=== PATIENT | male | born 1985 | race Caucasian/White ===

== ENCOUNTER 2017-01-03 16:00 | Inpatient (IN) | payer OTHER ==
--- NOTE | ~2017-01-03 | DS ---
Unit #: [id number] #: [id number] Patient: CHRISTAL DAWSON [id number] [facility] [address] [place] [address] [id number] MR#: [id number] NAME: CHRISTAL DAWSON ROOM: P202 Age: 31 Sex: M Admission Date: 01/03/2017 : 1985 Discharge Date: 01/05/2017 Attending Physician: Aurelio Bello M.D. Primary Care Physician: Primary Care Physician No DISCHARGE SUMMARY REASON FOR ADMISSION The patient is a 31-year-old white male, admitted with a recent relapse of opioid abuse. HOSPITAL COURSE The patient was admitted to the [address] [place] [address] unit and placed on routine detoxification protocol for opioids. He was continued on previously prescribed medications including Lexapro, Depakote, Seroquel XR, and Levaquin which he is taking for wound infection. The patient's stay in the hospital was a brief and uneventful one. His detox went smoothly. Seroquel was increased to 150 mg of the XR formulation given the patient's complaints of increased poor sleep and paranoia. By 01/05/2017, arrangements have been made for the patient to return to "[facility]" to complete his course of treatment there and discharge was ordered. FINAL DIAGNOSES Opioid use disorder; bipolar disorder, unspecified; injection site abscess. FOLLOWUP The patient will follow up through the auspices of [facility]. PROGNOSIS His prognosis is considered fair. Dictated by... Aurelio Bello M.D. CB/edelmira TD: 01/06/2017 02:59 JOB #: [id number] DISCHARGE SUMMARY Page 1 of 1 X Aurelio Bello MD X DISCHARGE SUMMARY
--- NOTE | ~2017-01-03 | CO ---
Unit #: [id number] #: [id number] Patient: CHRISTAL DAWSON [id number] [place] [address] [id number] I MR#: [id number] NAME: CHRISTAL DAWSON ROOM: P202 Age: 31 Sex: M Admission Date: 01/03/2017 : 1985 Attending Physician: Aurelio Bello M.D. Primary Care Physician: Primary Care Physician No Requesting Physician: Aurelio Bello M.D. Consultation Date: 01/04/2017 CONSULTATION REPORT SUBJECTIVE "I have a heroin habit and my right forearm is the vein I use most and I developed an abscess." I ended up in the hospital and they gave me IV antibiotics and then discharged me here, and I'm taking Levaquin by mouth because I am allergic to everything else." OBJECTIVE VITAL SIGNS: Within normal limits. Noted surgical wound to right forearm approximately 3 cm x 2 cm x 1 cm deep. Area is clean, dry and no redness, no drainage, no odor. ASSESSMENT Healing abscess to right forearm. PLAN Continue current plan of treatment including twice daily dressing changes. Dictated by... Félix Ruiz/lizz TD: 01/05/2017 08:55 JOB #: [id number] CONSULTATION REPORT Page 1 of 1 X Alejandra Ely APR X CONSULTATION REPORT
--- NOTE | ~2017-01-03 | HP ---
Unit #: [id number] #: [id number] Patient: CHRISTAL DAWSON [id number] [place] [address] [id number] I MR#: [id number] NAME: CHRISTAL DAWSON ROOM: P202 Age: 31 Sex: M Admission Date: 01/03/2017 : 1985 Attending Physician: Aurelio Bello M.D. Admitting Physician: Aurelio Bello M.D. Primary Care Physician: Primary Care Physician No HISTORY AND PHYSICAL HISTORY OF PRESENT ILLNESS The patient is a 31-year-old male, who states that he is here for depression and suicidal ideation, and heroin abuse. PAST MEDICAL HISTORY Significant for seizures. PAST SURGICAL HISTORY Significant for right arm, left knee, and right femur surgery of some sort. ALLERGIES Sulfa, penicillin, and Rocephin. SOCIAL HISTORY Positive for smoking, alcohol, and drugs. FAMILY HISTORY Noncontributory. REVIEW OF SYSTEMS CONSTITUTIONAL: No fever or chills. HEENT: Denies any sore throat, ear pain or runny nose. CARDIOVASCULAR: Denies chest pain, irregular heart rhythm or palpitations. CHEST: Denies shortness of breath or cough. No hemoptysis. GASTROINTESTINAL: Denies nausea, vomiting, diarrhea or chronic constipation. ENDOCRINE: Denies history of increased thirst or urination. No recent significant weight loss or gain. GENITOURINARY: Denies dysuria, frequency, or hematuria. SKIN: Denies any rashes. HEMATOLOGIC: Denies history of increased bleeding or bruising. MUSCULOSKELETAL: Denies any hot, swollen joints. No generalized muscle pain. NEUROLOGIC: Denies problems with vision or speech. No frequent, severe headaches. No numbness, tingling or weakness in any extremities. Denies loss of bladder or bowel control. CURRENT MEDICATIONS 1. Neurontin 400 mg p.o. four times daily 2. Lexapro 10 mg p.o. daily 3. Depakote 250 mg p.o. twice daily 4. Seroquel ER 50 mg p.o. q.h.s. 5. Currently Levaquin 750 mg one p.o. daily times two more doses Unit #: [id number] #: [id number] Patient: CHRISTAL DAWSON PHYSICAL EXAMINATION GENERAL: Alert, oriented, and in no acute distress. VITAL SIGNS: Temperature 98.7, heart rate 79, respirations 16, and blood pressure 104/67. HEIGHT: 5 feet 11 inches. WEIGHT: 196 pounds. SKIN: Warm and dry without rash or lesion. Abscess to right forearm, surgical wound noted approximately 3 cm in length x 2 cm wide x 1 cm deep, no redness, swelling, or drainage, or foul odor. Scar to the left thigh, scar to the left foot, and scar to the right knee. HEENT: Normocephalic. TMs not viewed. Oral and nasal passages clear. Conjunctivae clear. PERRLA. EOMs intact. NECK: Supple without lymphadenopathy or thyromegaly. HEART: Regular rate and rhythm without murmur. LUNGS: Clear. ABDOMEN: Soft, nontender. : Not done. EXTREMITIES: No evidence of cyanosis, clubbing or edema. Moves all without focal deficit. NEUROLOGICAL: Grossly within normal limits. Cranial Nerves: II: Visual luna are intact. III, IV AND : Extraocular movements are intact. Pupils are equal, round and reactive to light. V: Facial sensation is grossly normal. VII: Facial movements and expression are normal. VIII: Auditory acuity grossly intact. IX, X: Uvula is midline. Phonation is normal. XI: Patient shrugs shoulders and turns head normally. XII: Tongue protrudes in the midline. Sensory and Motor Function: Sensory and motor sensation is grossly normal. Motor: moves all extremities well. Coordination: Gait is normal. Deep Tendon Reflexes: Intact. IMPRESSION Psychiatric admission. RECOMMENDATIONS Psychiatric, per psychiatrist. MEDICAL I see no contraindications to participating in facility's activities. MEDICAL PROGNOSIS Good. Dictated by... Félix Ruiz/lizz TD: 01/05/2017 08:58 JOB #: [id number] Unit #: [id number] #: [id number] Patient: CHRISTAL DAWSON HISTORY AND PHYSICAL Page 1 of 1 X Alejandra Ely APR X HISTORY AND PHYSICAL
--- NOTE | ~2017-01-03 | PA ---
Unit #: [id number] #: [id number] Patient: CHRISTAL DAWSON [id number] [place] [address] [id number] I MR#: [id number] NAME: CHRISTAL DAWSON ROOM: P202 Age: 31 Sex: M Admission Date: 01/03/2017 : 1985 Date of Assessment: 01/04/2017 Attending Physician: Aurelio Bello M.D. Admitting Physician: Aurelio Bello M.D. Primary Care Physician: Primary Care Physician No PSYCHIATRIC ASSESSMENT IDENTIFING INFORMATION The patient is a 31-year-old white male, admitted with increasing abuse of heroin, suicidal ideation, and auditory hallucinations. INFORMANT(S) Patient, patient reliability is fair. CHIEF COMPLAINT None given. HISTORY OF PRESENT ILLNESS The patient is a 31-year-old white male, admitted to the [address] [place] [address] after presenting to this facility reporting increasing abuse of heroin. He was also reporting auditory hallucinations of a command type telling him to harm himself. The patient reports that [place] The patient reports that he has been noncompliant with medications and at this time is presently homeless with hopes to live with his mother following discharge. He was last admitted to this facility on 08/21/2016. For a more complete history of present illness please refer to the previously dictated notes. PAST PSYCHIATRIC HISTORY Reviewed and no changes. PAST MEDICAL HISTORY Reviewed and no changes. MEDICATIONS AT THE TIME OF ADMISSION The patient's medications included: 1. Neurontin 2. Lexapro 3. Depakote 4. Seroquel XR 5. Levaquin ALLERGIES None. FAMILY HISTORY Noncontributory. SOCIAL HISTORY The patient is presently homeless but hopes to live with his mother Unit #: [id number] #: [id number] Patient: CHRISTAL DAWSON following discharge. He reports daily use of heroin. He reports no abuse of other psychoactive substances. MENTAL STATUS EXAM At this time reveals the patient to be a well-developed, well-nourished discharged white male, appearing his stated age. He is in no apparent physical distress at the time of the examination. He is awake, alert, and oriented in all spheres. His mood is dysphoric. His affect constricted. Speech is generally relevant and coherent. There are no gross deficits to memory or cognition noted. Intelligence is judged to be in the average range based on fund of knowledge. The patient is cooperative throughout the interview. He is currently endorsing positive suicidal ideation and denies homicidal ideation. He denies any psychotic symptoms. His judgment and insight appear to be reasonably intact. ASSETS To be assessed. LIABILITIES Lack of resources. ADMITTING DIAGNOSES [place] I: Opioid use disorder. Schizoaffective disorder. Injection site abscess. TREATMENT PLAN The patient remains hospitalized for safety and stabilization. We will discontinue Neurontin but continue previously prescribed medications including Depakote, Lexapro, and Seroquel, and Levaquin. I will increase the patient's Seroquel dose to 150 mg at h.s. to address psychotic symptoms. Routine detoxification protocol for opioids has been initiated and suicide precautions are in place. ESTIMATED LENGTH OF STAY IN THE HOSPITAL Bkrn-fn-homce days. Dictated by... Aurelio Bello M.D. CARISSA/lizz TD: 01/05/2017 07:59 JOB #: [id number] Unit #: [id number] #: [id number] Patient: CHRISTAL DAWSON PSYCHIATRIC ASSESSMENT Page 1 of 1 X Aurelio Bello MD X PSYCHIATRIC ASSESSMENT
[2017-01-05 10:15] LABS: URINE APPEARANCE CLEAR; URINE BILIRUBIN NEG (NEG); URINE BLOOD NEG (NEG); URINE COLOR YELLOW; URINE GLUCOSE NEG (NEG); URINE KETONE NEG (NEG); URINE LEUKOCYTE ESTERASE NEG (NEG); URINE NITRATE NEG (NEG); URINE PROTEIN NEG (NEG); URINE SPECIFIC GRAVITY 1.009 (1.003-1.035); URINE UROBILINOGEN 0.2 MG/DL (NEG)
[2017-01-05 11:07] LABS: AMPHETAMINE NEG (NEG); BARBITURATES NEG (NEG); BENZODIAZEPINES NEG (NEG); COCAINE NEG (NEG); MARIJUANA NEG (NEG); OPIATES POS (NEG); TRICYCLIC ANTIDEPRESSANTS NEG (NEG); U METHADONE NEG (NEG)
== END 2017-01-05 16:15 | DRG 897 ==
LOC: UNDOADMIN 19:11 → P1E 19:11 → P2S 21:33
PROVIDERS: Specialist
PROC: HZ2ZZZZ Detoxification Services for Substance Abuse Treatment (ICD-10-PCS; principal; 2017-01-04)
DX: F11.10 Opioid abuse, uncomplicated (principal); R45.851 Suicidal ideations; Z88.0 Allergy status to penicillin; Z88.2 Allergy status to sulfonamides; F31.9 Bipolar disorder, unspecified
CPT/HCPCS: 80307; 81003

== ENCOUNTER 2017-01-17 20:00 | Inpatient (IN) | payer OTHER ==
--- NOTE | ~2017-01-17 | PN ---
Unit #: [id number] #: [id number] Patient: CHRISTAL DAWSON [id number] [facility] [address] [place] [address] [id number] I MR#: [id number] NAME: CHRISTAL DAWSON ROOM: P206 Age: 31 Sex: M Admission Date: 01/17/2017 : 1985 Attending Physician: Aurelio Bello M.D. Admitting Physician: Aurelio Bello M.D. Primary Care Physician: Primary Care Physician Nicole MOON PROGRESS NOTES DATE 01/19/2017 DISCUSSION The patient is abed resting comfortably. He offers no new complaints when seen today. His detox continues uneventfully. Dictated by... Aurelio Bello M.D. CB/danica TD: 01/19/2017 10:51 JOB #: [id number] [facility] PROGRESS NOTES Page 1 of 1 X Aurelio Bello MD X PROGRESS NOTE
--- NOTE | ~2017-01-17 | PA ---
Unit #: [id number] #: [id number] Patient: CHRISTAL DAWSON [id number] [facility] [address] [place] [address] [id number] MR#: [id number] NAME: CHRISTAL DAWSON ROOM: P206 Age: 31 Sex: M Admission Date: 01/17/2017 : 1985 Date of Assessment: 01/18/2017 Attending Physician: Aurelio Bello M.D. Admitting Physician: Aurelio Bello M.D. Primary Care Physician: Primary Care Physician No PSYCHIATRIC ASSESSMENT IDENTIFYING INFORMATION The patient is a 31-year-old white male admitted to the [address] [place] [address] unit with complaints of suicidal ideation and heroin abuse. CHIEF COMPLAINT Relapse INFORMANT(S) The patient, reliability is fair. HISTORY OF PRESENT ILLNESS The patient is a 31-year-old white male discharged from this facility on 01/07/2017. He was scheduled to return to "[facility]" but reports that he was not accepted to that facility. The patient since that time has been living "in a hotel and with my mother" though the chart seems to indicate the patient is actually homeless. The patient had reported a plan to step into traffic to commit suicide when admitted but to this physician states that he had hoped to purchase a bottle of power steering fluid ingest it and see what the results would be. The patient when queried as to whether he is abusing any substances the patient answered "only heroin." He continues to endorse positive suicidal ideation when seen today he denies homicidal ideation. For more complete history of present illness please refer to previous dictated notes. PAST PSYCHIATRIC HISTORY Reviewed no changes. PAST MEDICAL HISTORY Reviewed no changes. MEDICATIONS The patient was discharged from this facility on 01/05 on Seroquel XR only. He claims to be on various medications including Neurontin, Lexapro, Depakote, clindamycin, diclofenac, prochlorperazine, Claritin, Seroquel XR and Atarax. ALLERGIES Penicillin and sulfa, brompheniramine, codeine, dextromethorphan, pseudoephedrine. FAMILY HISTORY Reviewed no changes Unit #: [id number] #: [id number] Patient: CHRISTAL DAWSON SOCIAL HISTORY Reviewed no changes MENTAL STATUS EXAMINATION At this time reveals the patient to be a disheveled white male, appearing his stated age. He is in no apparent physical distress at the time of examination. He is awake, alert, and oriented in all spheres. His mood is mildly dysphoric. His affect constricted. Speech is generally relevant and coherent. There are no gross deficits in memory or cognition noted. Intelligence is judged to be in the low average range based on fund of knowledge. The patient is cooperative throughout the interview. He is currently endorsing positive suicidal. He denies homicidal ideation. He denies any psychotic features. His judgment and insight appear to be at baseline. The patient's assets to be assessed. Liabilities homelessness, lack of resources. DIAGNOSTIC IMPRESSION Opioid use disorder, mood disorder unspecified, injection site abscess. TREATMENT PLAN The patient remains hospitalized for safety and stabilization. We will continue previously prescribed Seroquel XR and clindamycin. The patient's Depakote is at dosed at 250 mg twice daily which is clearly not capable of providing any anticonvulsant affect and the patient was on no such medication at the time of his previous admission to this facility. The patient will participate in appropriate ndiaye and milieu activities and will be transferred to the [facility] or [address] [place] [address] unit. It is my suspicion that the patient is here secondary to his current homeless status and need for lodging however his continued claims of suicidal ideation with specific plan i.e. "ingestion of power steering fluid" necessitates ongoing inpatient care. Dictated by... Aurelio Bello M.D. CARISSA/danica TD: 01/19/2017 01:39 JOB #: [id number] PSYCHIATRIC ASSESSMENT Page 1 of 1 X Aurelio Bello MD X PSYCHIATRIC ASSESSMENT
--- NOTE | ~2017-01-17 | DS ---
Unit #: [id number] #: [id number] Patient: CHRISTAL DAWSON [id number] [place] [address] [id number] MR#: [id number] NAME: CHRISTAL DAWSON ROOM: P206 Age: 31 Sex: M Admission Date: 01/17/2017 : 1985 Discharge Date: 01/20/2017 Attending Physician: Aurelio Bello M.D. Primary Care Physician: Primary Care Physician No DISCHARGE SUMMARY REASON FOR ADMISSION The patient is a 31-year-old, single, white male, admitted to the [address] [place] [address] for opioid detox and claiming to have suicidal ideation. HOSPITAL COURSE The patient was admitted to [address] [place] [address] and placed on suicide precautions. He was continued on prescribed Seroquel XR and Cleocin. The patient's detox was uneventful one and his mood brightened considerably. By 01/20/2017, he stated that he was headed to "[facility]" and discharge was ordered. FINAL DIAGNOSES Opioid use disorder; dysthymic disorder; injection site abscess. DISPOSITION ON DISCHARGE The patient is discharged on the following medications: Cleocin 150 mg q.6 hours for injection site abscess, Seroquel XR 150 mg at 7:00 p.m. for mood stabilization. DISCHARGE INSTRUCTIONS No dietary or physical restrictions were placed upon the patient at the time of discharge. FOLLOWUP Followup will take place through the auspices of community mental health resources. PROGNOSIS The patient's prognosis is considered fair. Dictated by... Aurelio Bello M.D. CARISSA/edelmira TD: 01/20/2017 16:57 JOB #: [id number] Unit #: [id number] #: [id number] Patient: CHRISTAL DAWSON DISCHARGE SUMMARY Page 1 of 1 X Aurelio Bello MD X DISCHARGE SUMMARY
--- NOTE | ~2017-01-17 | HP ---
Unit #: [id number] #: [id number] Patient: CHRISTAL DAWSON [id number] [facility] [address] [place] [address] [id number] MR#: [id number] NAME: CHRISTAL DAWSON ROOM: P206 Age: 31 Sex: M Admission Date: 01/17/2017 : 1985 Attending Physician: Aurelio Bello M.D. Admitting Physician: Aurelio Bello M.D. Primary Care Physician: Primary Care Physician No HISTORY AND PHYSICAL The patient is a 31-year-old male admitted to [address] [place] [address] on 01/17/2017 for suicidal ideations and to detox from heroin. The patient had a recent admission on 01/03/2017 where a full history and physical was completed that history and physical has been reviewed. No changes need to be made. Dictated by... Félix Weaver/danica TD: 01/19/2017 04:05 JOB #: [id number] HISTORY AND PHYSICAL Page 1 of 1 X KJ VAZQUEZ APRN X HISTORY AND PHYSICAL
[2017-01-18 12:16] LABS: AMPHETAMINE NEG (NEG); BARBITURATES POS (NEG); BENZODIAZEPINES POS (NEG); COCAINE NEG (NEG); MARIJUANA NEG (NEG); OPIATES POS (NEG); TRICYCLIC ANTIDEPRESSANTS NEG (NEG); U METHADONE NEG (NEG)
== END 2017-01-20 13:30 | disposition home or self-care (01) | DRG 897 ==
LOC: P2S 22:25 → P2L 22:25 → P2S 01-18 14:53
PROVIDERS: Psychiatry & Neurology Psychiatry
PROC: HZ2ZZZZ Detoxification Services for Substance Abuse Treatment (ICD-10-PCS; principal; 2017-01-17)
DX: F11.20 Opioid dependence, uncomplicated (principal); R45.851 Suicidal ideations; L02.91 Cutaneous abscess, unspecified; F39 Unspecified mood [affective] disorder; Z88.2 Allergy status to sulfonamides; Z88.0 Allergy status to penicillin; Z88.5 Allergy status to narcotic agent; Z88.8 Allergy status to other drugs, medicaments and biological substances
CPT/HCPCS: 80164; 80307; 86592

== ENCOUNTER 2017-01-31 11:00 | Inpatient (IN) | payer OTHER ==
--- NOTE | ~2017-01-31 | PA ---
Unit #: [id number] #: [id number] Patient: CHRISTAL DAWSON [id number] [facility] [address] [place] [address] [id number] I MR#: [id number] NAME: CHRISTAL DAWSON ROOM: P178 Age: 31 Sex: M Admission Date: 01/31/2017 : 1985 Date of Assessment: 02/01/2017 Attending Physician: Aurelio Belol M.D. Admitting Physician: Aurelio Bello M.D. Primary Care Physician: Duncan Virgen M.D. PSYCHIATRIC ASSESSMENT IDENTIFYING INFORMATION The patient is a 31-year-old white male, last discharged from this facility on 01/20/2017. He returns stating that he began using almost immediately upon discharge from the hospital. INFORMANT(S) Patient, patient reliability is poor. CHIEF COMPLAINT "I want to get on Suboxones, man." HISTORY OF PRESENT ILLNESS The patient is a 31-year-old white male, brought to this facility by his mother last evening after he had claimed to be hearing voices telling him to jump off [place] [address] [place]. The patient reports that upon his last discharge from the hospital he went to live with his mother and began using heroin and methamphetamine almost immediately. The patient is currently denying suicidal ideation. He denies homicidal ideation but he is denying any auditory hallucinations, at this time he is expressing interest in initiation of Suboxone. For a more complete history of present illness please refer to previously dictated notes. PAST PSYCHIATRIC HISTORY Reviewed and no changes. PAST MEDICAL HISTORY Reviewed and no changes. MEDICATIONS 1. Seroquel 2. Vistaril ALLERGIES Penicillin, sulfa, amoxicillin, brompheniramine, codeine, dextromethorphan, pseudoephedrine. FAMILY HISTORY Reviewed and no changes. SOCIAL HISTORY Reviewed and no changes. MENTAL STATUS EXAM Unit #: [id number] #: [id number] Patient: CHRISTAL DAWSON At this time reveals the patient to be a well-developed, well-nourished white male, appearing his stated age. He is in no apparent physical distress at the time of the examination. He is awake, alert, and oriented in all spheres. His mood is euthymic. His affect full-range. Speech is generally relevant and coherent. There are no gross deficits to memory or cognition noted. Intelligence is judged to be in the average range based on fund of knowledge. The patient is cooperative throughout the interview. She is currently denying suicidal or homicidal ideation and denies any psychotic symptoms. He does not appear to be responding to internal stimuli. His judgment and insight appear to be at baseline. ASSETS To be assessed. LIABILITIES Ongoing substance use, poor compliance with treatment. DIAGNOSTIC IMPRESSION [place] I: Opioid use disorder. 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 Opioid use disorder. TREATMENT PLAN The patient remains hospitalized for safety and stabilization. We will watch for any signs of opiate withdrawal with a routine detoxification protocol. The patient's home medications have been initiated, I suspect that the patient complaints of auditory hallucinations were probably related to his abuse of methamphetamine and do not represent a true psychotic disorder. The patient will participate in appropriate ndiaye and milieu activities. ESTIMATED LENGTH OF STAY IN THE HOSPITAL Xtnz-qw-hyely days. I have made it clear to the patient that I have no intention of starting him or any other patient on Suboxone as this facility is not licensed to do so, he will be given information regarding Suboxone treatment at the time of his discharge. Dictated by... Aurelio Bello M.D. CB/lizz TD: 02/02/2017 05:21 JOB #: [id number] Unit #: [id number] #: [id number] Patient: CHRISTAL DAWSON PSYCHIATRIC ASSESSMENT Page 1 of 1 X Aurelio Bello MD X PSYCHIATRIC ASSESSMENT
--- NOTE | ~2017-01-31 | DS ---
Unit #: [id number] #: [id number] Patient: CHRISTAL DAWSON [id number] [place] [address] [id number] MR#: [id number] NAME: CHRISTAL DAWSON ROOM: P178 Age: 31 Sex: M Admission Date: 01/31/2017 : 1985 Discharge Date: 02/02/2017 Attending Physician: Aurelio Bello M.D. Primary Care Physician: Duncan Virgen M.D. DISCHARGE SUMMARY REASON FOR ADMISSION The patient is a 31-year-old white male, admitted to the [address] [place] [address] unit for opioid detox. HOSPITAL COURSE The patient was admitted to the [facility] unit and placed on routine detoxification protocol for opioids. His stay in the hospital was a brief and uneventful one. The patient exhibiting little in the way of signs or symptoms of opioid withdrawal. By 02/02/2017, the patient requested discharge citing a wish to return to the intensive outpatient program. Discharge was ordered. FINAL DIAGNOSES Opioid use disorder; methamphetamine use disorder. DISPOSITION ON DISCHARGE The patient is discharged on the following medications: Seroquel XR 150 mg at bedtime for mood stabilization and Vistaril 50 mg q.6 hours p.r.n. anxiety. DISCHARGE INSTRUCTIONS No dietary or physical restrictions were placed upon the patient at the time of discharge. FOLLOWUP Followup will take place through the auspices of community mental health resources. PROGNOSIS The patient's prognosis remains guarded. Dictated by... Aurelio Bello M.D. CB/edelmira TD: 02/02/2017 15:37 JOB #: [id number] Unit #: [id number] #: [id number] Patient: CHRISTAL DAWSON DISCHARGE SUMMARY Page 1 of 1 X Aurelio Bello MD X DISCHARGE SUMMARY
--- NOTE | ~2017-01-31 | HP ---
Unit #: [id number] #: [id number] Patient: CHRISTAL DAWSON [id number] [facility] [address] [place] [address] [id number] MR#: [id number] NAME: CHRISTAL DAWSON ROOM: P178 Age: 31 Sex: M Admission Date: 01/31/2017 : 1985 Attending Physician: Aurelio Bello M.D. Admitting Physician: Aurelio Bello M.D. Primary Care Physician: Duncan Virgen M.D. HISTORY AND PHYSICAL The patient is a 31-year-old male admitted to [facility] on 01/31/2017 for suicidal ideations and heroin abuse. The patient has previous admissions for the same. His most recent admission was 01/03/2017 where a full history and physical was completed. That history and physical has been reviewed, no changes need to be made. Dictated by... Félix Weaver/danica TD: 02/02/2017 05:14 JOB #: [id number] HISTORY AND PHYSICAL Page 1 of 1 X KJ VAZQUEZ APRN HISTORY AND PHYSICAL
[2017-02-01 13:52] LABS: BASOPHIL% 0.6 % (0-2.5); EOSINOPHIL# 0.3 X10e3 (0-0.7); EOSINOPHIL% 5.4 % (0.0-7.0); HEMATOCRIT 44.5 % (38.0-50.0); HEMOGLOBIN 14.7 gm/dL (13.0-16.0); LYMPHOCYTE% 34.9 % (17.0-45.0); MEAN CELL VOLUME 93.5 FL (83-96); MEAN CORPUSCULAR HEMOGLOBIN 30.8 PG (28-34); MEAN CORPUSCULAR HGB CONC 32.9 g/dL (30-36); MEAN PLATELET VOLUME 9.1 FL (6.5-11.5); MONOCYTE# 0.6 X10e3 (0-1.0); MONOCYTE% 9.6 % (3.0-12.0); NEUTROPHIL# 2.9 X10e3 (1.5-7.1); NEUTROPHIL% 49.5 % (40-75); PLATELET COUNT 197 X10e3 (140-420); RED BLOOD COUNT 4.76 X10e (3.90-5.60); RED CELL DISTRIBUTION WIDTH 14.1 % (11.0-15.5); WHITE BLOOD COUNT 5.8 X10e3 (4.0-10.5)
[2017-02-01 13:53] LABS: DIFF IND NO
[2017-02-01 14:09] LABS: ALBUMIN SERUM 3.9 g/dL (3.5-5.0); BILIRUBIN,TOTAL 0.8 mg/dL (0.2-2.0); CALCIUM SERUM 9.4 mg/dL (8.4-10.2); CREATININE SERUM 0.6 mg/dL (0.6-1.4); POTASSIUM 4.8 mmol/L (3.5-5.1); PROTEIN TOTAL SERUM 7.6 g/dL (6.0-8.3)
== END 2017-02-02 15:12 | DRG 897 ==
LOC: P1E 12:25
PROVIDERS: Specialist
PROC: HZ2ZZZZ Detoxification Services for Substance Abuse Treatment (ICD-10-PCS; principal; 2017-02-01)
DX: F11.10 Opioid abuse, uncomplicated (principal); F15.151 Other stimulant abuse with stimulant-induced psychotic disorder with hallucinations; F15.129 Other stimulant abuse with intoxication, unspecified
CPT/HCPCS: 80053; 85025; 86592

== ENCOUNTER 2017-02-04 14:00 | Inpatient (IN) | payer OTHER ==
--- NOTE | ~2017-02-04 | PA ---
Unit #: [id number] #: [id number] Patient: CHRISTAL DAWSON [id number] [facility] [address] [place] [address] [id number] MR#: [id number] NAME: CHRISTAL DAWSON ROOM: P121 Age: 31 Sex: M Admission Date: 02/04/2017 : 1985 Date of Assessment: 02/05/2017 Attending Physician: Aurelio Bello M.D. Admitting Physician: Aurelio Bello M.D. Primary Care Physician: Duncan Virgen M.D. PSYCHIATRIC ASSESSMENT IDENTIFYING INFORMATION The patient is a 31-year-old white male readmitted to the [address] [place] [address] after he had presented to this facility claiming to be suicidal. INFORMANT(S) Patient. RELIABILITY Fair. CHIEF COMPLAINT My uncle . HISTORY OF PRESENT ILLNESS The patient is a 31-year-old white male with a history of polysubstance dependence. He just left this facility 2 days prior to this readmission. He reports that in that interim his uncle and began using heroin once again. The patient's mother stated that she had seen him "with cleaning supplies" threatening to drink bleach. The patient continues to endorse positive suicidal ideation when seen today and is also claiming to be experiencing auditory hallucinations. For a more complete history of present illness, please refer to previous dictated notes. PAST PSYCHIATRIC HISTORY Reviewed, no changes. FAMILY HISTORY/SOCIAL HISTORY Reviewed, no changes. MEDICAL HISTORY Reviewed, no changes. MEDICATION HISTORY 1. Depakote. 2. Seroquel. 3. Gabapentin. ALLERGIES Penicillin, sulfa, amoxicillin, brompheniramine, codeine, dextromethorphan, pseudoephedrine. MENTAL STATUS EXAM At this time, reveals the patient to be a well-developed, well-nourished Unit #: [id number] #: [id number] Patient: CHRISTAL DAWSON white male appearing his stated age. He is in no apparent physical distress at the time of this examination. He is awake, alert, oriented in all spheres. His mood is dysphoric. His affect is congruent. Speech is generally relevant and coherent. The patient is currently endorsing positive suicidal ideation. He denies homicidal ideation. He reports positive auditory hallucinations. He denies other psychotic symptoms. His judgement and insight appear to be baseline. No signs of substance withdrawal at this point evidenced. ASSETS AND LIABILITIES Patient's assets to be assessed. Liabilities, lack of resources. ADMITTING DIAGNOSES 1. Opioid use disorder. 2. Methamphetamine use disorder. 3. Antisocial personality disorder. PSYCHIATRIC PLAN/TREATMENT GOALS The patient remains hospitalized for safety and stabilization. I will discontinue Depakote and Seroquel as the patient is currently noncompliant with these medications but given his complaints of auditory hallucinations will begin a trial of Risperdal 1 mg b.i.d. The patient will participate in appropriate ndiaye and milieu activities. No detox protocol was deemed necessary secondary to the brief period of time the patient was out of the hospital. ESTIMATED LENGTH OF STAY Three to five days. Dictated by... Aurelio Bello M.D. CARISSA/ozzie TD: 02/05/2017 16:45 JOB #: [id number] PSYCHIATRIC ASSESSMENT Page 1 of 1 X Aurelio Bello MD X PSYCHIATRIC ASSESSMENT
--- NOTE | ~2017-02-04 | HP ---
Unit #: [id number] #: [id number] Patient: SANJIV DAWSON [id number] [place] [address] [id number] I MR#: [id number] NAME: SANJIV DAWSON ROOM: P121 Age: 31 Sex: M Admission Date: 02/04/2017 : 1985 Attending Physician: Aurelio Bello M.D. Admitting Physician: Aurelio Bello M.D. Primary Care Physician: Duncan Virgen M.D. HISTORY AND PHYSICAL HISTORY OF PRESENT ILLNESS Sanjiv is a 31 year old admitted to [address] [place] [address] because of his continued drug use. He has had other admissions to this facility for the same. PAST MEDICAL HISTORY 1. Long history of illicit substance abuse to include IV heroin, methamphetamine and alcohol. 2. Seizure disorder. 3. History of CHI. PAST SURGICAL HISTORY 1. Fractured left femur with ORIF. 2. Surgical I & D multiple abscesses, IV drug related. ALLERGIES Penicillin, sulfa, codeine, pseudoephedrine, dextromethorphan. SOCIAL HISTORY Smokes two packs per day. Drinks a fifth of liquor frequently and admits to a long history of poly illicit substance abuse to include IV drugs. FAMILY HISTORY Medically noncontributory. REVIEW OF SYSTEMS CONSTITUTIONAL: No fever or chills. HEENT: Denies any sore throat, ear pain or runny nose. CARDIOVASCULAR: Denies chest pain, irregular heart rhythm or palpitations. CHEST: Denies shortness of breath or cough. No hemoptysis. GASTROINTESTINAL: Denies nausea, vomiting, diarrhea or chronic constipation. ENDOCRINE: Denies history of increased thirst or urination. No recent significant weight loss or gain. GENITOURINARY: Denies dysuria, frequency, or hematuria. SKIN: Denies any rashes. HEMATOLOGIC: Denies history of increased bleeding or bruising. MUSCULOSKELETAL: Denies any hot, swollen joints. No generalized muscle pain. NEUROLOGIC: Denies problems with vision or speech. No frequent, severe headaches. No numbness, tingling or weakness in any extremities. Denies loss of bladder or bowel control. Unit #: [id number] #: [id number] Patient: SANJIV DAWSON CURRENT MEDICATIONS 1. Risperdal 1 mg b.i.d. 2. Depakote 250 mg b.i.d. 3. Nicotine patch 14 mg q day 4. Neurontin 300 mg t.i.d. 5. Milk of Magnesia p.r.n. 6. Maalox p.r.n. 7. Tylenol p.r.n. PHYSICAL EXAMINATION GENERAL: Alert, well-nourished, in no apparent distress. VITAL SIGNS: Blood pressure 120/66, heart rate 82, respirations 16, temperature 98.6. WEIGHT: 199 pounds. HEIGHT: 5'10". SKIN: Warm and dry without rash or lesion. HEENT: Normocephalic. TMs not viewed. Oral and nasal passages clear. Conjunctivae clear. Pupils equal, round and reactive to light and accommodation. Extraocular movements intact. NECK: Supple without lymphadenopathy or thyromegaly. HEART: Regular rate and rhythm without murmur. LUNGS: Clear. ABDOMEN: Soft, nontender. : Not done. EXTREMITIES: No evidence of cyanosis, clubbing or edema. Moves all extremities without focal deficit. NEUROLOGICAL: Grossly within normal limits. Cranial Nerves: II: Visual luna are intact. III, IV AND : Extraocular movements are intact. Pupils are equal, round and reactive to light. V: Facial sensation is grossly normal. VII: Facial movements and expression are normal. VIII: Auditory acuity grossly intact. IX, X: Uvula is midline. Phonation is normal. XI: Patient shrugs shoulders and turns head normally. XII: Tongue protrudes in the midline. Sensory and Motor Function: Sensory and motor sensation is grossly normal. Motor: moves all extremities well. Coordination: Gait is normal. Deep Tendon Reflexes: Intact. IMPRESSION Psychiatric admission RECOMMENDATIONS PSYCHIATRIC: Per psychiatrist. MEDICAL: I see no contraindications to participating in facility's activities. MEDICAL PROGNOSIS Good. MEDICAL CONDITION Stable. Dictated by... Unit #: [id number] #: [id number] Patient: SAMIRSANJIV José RomeroAZahraa-Kanika. for Enrrique Elliott/danica TD: 02/05/2017 20:58 JOB #: [id number] HISTORY AND PHYSICAL Page 1 of 1 X Adilia Garcia HISTORY AND PHYSICAL
--- NOTE | ~2017-02-04 | DS ---
Unit #: [id number] #: [id number] Patient: CHRISTAL DAWSON [id number] [facility] [address] [place] [address] [id number] MR#: [id number] NAME: CHRISTAL DAWSON ROOM: P121 Age: 31 Sex: M Admission Date: 02/04/2017 : 1985 Discharge Date: 02/06/2017 Attending Physician: Aurelio Bello M.D. Primary Care Physician: Duncan Virgen M.D. DISCHARGE SUMMARY REASON FOR ADMISSION The patient is a 31-year-old white male, admitted with recurrent abuse of opioids and methamphetamine, and claims of suicidal ideation. HOSPITAL COURSE The patient was admitted to the [address] [place] [address] unit and placed on suicide precautions. No detoxification protocol was deemed necessary given the patient's brief time outside the hospital and given the patient's ongoing abuse of substances Seroquel and Depakote were discontinued. The patient was begun on Risperdal 1 mg b.i.d. given complaints of psychotic symptoms which were felt to be methamphetamine induced. By 02/06/2017, the patient requested discharge from the hospital citing a need to attend a . He at that time exhibited no signs or symptoms of psychosis and discharge was ordered. FINAL DIAGNOSES Methamphetamine use disorder; mood disorder, unspecified; opioid use disorder. DISPOSITION ON DISCHARGE The patient is discharged on no psychotropic or other medications. FOLLOWUP Followup will take place through the auspices of community mental health resources. PROGNOSIS The patient's prognosis is considered poor. Dictated by... Aurelio Bello M.D. CB/edelmira TD: 02/06/2017 15:03 JOB #: [id number] Unit #: [id number] #: [id number] Patient: CHRISTAL DAWSON DISCHARGE SUMMARY Page 1 of 1 X Aurelio Bello MD X DISCHARGE SUMMARY
== END 2017-02-06 15:15 | DRG 897 ==
LOC: P1S 21:49
DX: F11.20 Opioid dependence, uncomplicated (principal); R45.851 Suicidal ideations; F15.20 Other stimulant dependence, uncomplicated; F60.2 Antisocial personality disorder; Z91.19 Patient's noncompliance with other medical treatment and regimen; Z88.0 Allergy status to penicillin; Z88.2 Allergy status to sulfonamides; Z88.5 Allergy status to narcotic agent; F17.210 Nicotine dependence, cigarettes, uncomplicated; G40.909 Epilepsy, unspecified, not intractable, without status epilepticus
CPT/HCPCS: 80164; 82140

== ENCOUNTER 2017-02-22 13:56 | Inpatient (IN) | payer OTHER ==
--- NOTE | ~2017-02-22 | PA ---
Unit #: [id number] #: [id number] Patient: CHRISTAL DAWSON [id number] [facility] [address] [place] [address] [id number] I MR#: [id number] NAME: CHRISTAL DAWSON ROOM: P177 Age: 31 Sex: M Admission Date: 02/22/2017 : 1985 Date of Assessment: 02/23/2017 Attending Physician: Aurelio Bello M.D. Admitting Physician: Aurelio Bello M.D. Primary Care Physician: Duncan Virgen M.D. PSYCHIATRIC ASSESSMENT IDENTIFYING INFORMATION The patient is a 31-year-old white male, admitted to the [facility] unit after he had been accompanied to this facility by his mother stating that he had made both suicidal and homicidal threats. INFORMANT(S) Patient, chart, and mother, reliability good. CHIEF COMPLAINT None given. HISTORY OF PRESENT ILLNESS The patient is a 31-year-old white male, brought to this facility yesterday by his mother. The patient had initially reported a wish to attend intensive outpatient programming but his mother had confided to staff that he had made threats to kill both her and himself. She also reported that he had been treated the day before at [facility] for a reported overdose. The patient is, today, denying all of these facts. He states that he has continued to use heroin though he states that he has not gone "back to the needle." The patient denies suicidal ideation and claims be in need of attendance at a EPO court date later today and is demanding discharge. The patient's mother; however, does report, that the patient claims to be hearing voices telling him to harm himself and his mother. She apparently is not aware of his ongoing substance use. The patient is, today, denying suicidal or homicidal ideation, and denies the event leading to hospitalization in spite of evidence to the contrary. For more complete history of present illness please refer to previously dictated notes. PAST PSYCHIATRIC HISTORY Reviewed and no changes. PAST MEDICAL HISTORY Reviewed and no changes. MEDICATIONS AT THE TIME OF ADMISSION The patient was reportedly prescribed Risperdal but has been compliant with none of these medications. ALLERGIES None reported. Unit #: [id number] #: [id number] Patient: CHRISTAL DAWSON FAMILY HISTORY Reviewed and no changes. SOCIAL HISTORY Reviewed and no changes. MENTAL STATUS EXAM At this time reveals the patient to be a well-developed, well-nourished white male, appearing his stated age. He is in no apparent physical distress at the time of the examination. He is awake, alert, and oriented in all spheres. His mood is somewhat irritable. His affect congruent. Speech is generally relevant and coherent. There are no gross deficits to memory or cognition noted. Intelligence is judged to be in the low-average range based on fund of knowledge. The patient is cooperative throughout the interview. He is currently reporting no suicidal or homicidal ideation and denies any psychotic symptoms. His judgment and insight appears to be intact. ASSETS To be assessed. LIABILITIES Ongoing substance use. DIAGNOSTIC IMPRESSION [place] I: Opiate use disorder. Methamphetamine use disorder. Antisocial personality disorder. TREATMENT PLAN The patient will remain hospitalized for at least 72 hours of observation given reported threats against his own life and the life of his mother in spite of his demands that he be allowed to leave the hospital to attend court. The patient will participate in appropriate ndiaye and milieu activities, I will not reinitiate any medications as I feel as though the patient's "voices" are methamphetamine induced. ESTIMATED LENGTH OF STAY Three days. Dictated by... Aurelio Bello M.D. CB/lizz TD: 02/23/2017 11:57 JOB #: [id number] Unit #: [id number] #: [id number] Patient: CHRISTAL DAWSON PSYCHIATRIC ASSESSMENT Page 1 of 1 X Aurelio Bello MD X PSYCHIATRIC ASSESSMENT
--- NOTE | ~2017-02-22 | HP ---
Unit #: [id number] #: [id number] Patient: CHRISTAL DAWSON [id number] [facility] [address] [place] [address] [id number] I MR#: [id number] NAME: CHRISTAL DAWSON ROOM: P177 Age: 31 Sex: M Admission Date: 02/22/2017 : 1985 Attending Physician: Aurelio Bello M.D. Admitting Physician: Aurelio Bello M.D. Primary Care Physician: Duncan Virgen M.D. HISTORY AND PHYSICAL HISTORY OF PRESENT ILLNESS The patient is a 31-year-old male who states he is here he is not sure why. He says his mother showed someone a picture of something and he is not sure why he is here although per chart and per staff it states that patient attempted suicide yesterday. PAST MEDICAL HISTORY None. PAST SURGICAL HISTORY None. SOCIAL HISTORY Positive for opiates. ALLERGIES None. FAMILY HISTORY Noncontributory. REVIEW OF SYSTEMS CONSTITUTIONAL: No fever or chills. HEENT: Denies any sore throat, ear pain or runny nose. CARDIOVASCULAR: Denies chest pain, irregular heart rhythm or palpitations. CHEST: Denies shortness of breath or cough. No hemoptysis. GASTROINTESTINAL: Denies nausea, vomiting, diarrhea or chronic constipation. ENDOCRINE: Denies history of increased thirst or urination. No recent significant weight loss or gain. GENITOURINARY: Denies dysuria, frequency, or hematuria. SKIN: Denies any rashes. HEMATOLOGIC: Denies history of increased bleeding or bruising. MUSCULOSKELETAL: Denies any hot, swollen joints. No generalized muscle pain. NEUROLOGIC: Denies problems with vision or speech. No frequent, severe headaches. No numbness, tingling or weakness in any extremities. Denies loss of bladder or bowel control. CURRENT MEDICATIONS None. Unit #: [id number] #: [id number] Patient: CHRISTAL DAWSON PHYSICAL EXAMINATION GENERAL: Alert, oriented in no acute distress. VITAL SIGNS: Blood pressure 107/82, heart rate 90, respiration 16. HEIGHT: 5 feet 10 inches WEIGHT: 191 pounds SKIN: Scars to bilateral AC, left ankle, right knee. HEENT: Normocephalic. TMs not viewed. Oral and nasal passages clear. Conjunctivae clear. PERRLA. EOMs intact. NECK: Supple without lymphadenopathy or thyromegaly. HEART: Regular rate and rhythm without murmur. LUNGS: Clear. ABDOMEN: Soft, nontender, without masses or hepatosplenomegaly. : Not done. EXTREMITIES: No evidence of cyanosis, clubbing or edema. Moves all without focal deficit. NEUROLOGICAL: Grossly within normal limits. Cranial Nerves: II: Visual luna are intact. III, IV AND : Extraocular movements are intact. Pupils are equal, round and reactive to light. V: Facial sensation is grossly normal. VII: Facial movements and expression are normal. VIII: Auditory acuity grossly intact. IX, X: Uvula is midline. Phonation is normal. XI: Patient shrugs shoulders and turns head normally. XII: Tongue protrudes in the midline. Sensory and Motor Function: Sensory and motor sensation is grossly normal. Motor: moves all extremities well. Coordination: Gait is normal. Deep Tendon Reflexes: Intact. IMPRESSION Psychiatric admission. RECOMMENDATIONS Psychiatric, per psychiatrist. MEDICAL: I see no contraindications to participating in facility's activities. MEDICAL PROGNOSIS Good. Dictated by... Félix Ruiz/danica TD: 02/23/2017 03:37 JOB #: [id number] Unit #: [id number] #: [id number] Patient: CHRISTAL DAWSON HISTORY AND PHYSICAL Page 1 of 1 X Alejandra Ely APR X HISTORY AND PHYSICAL
--- NOTE | ~2017-02-22 | PN ---
Unit #: [id number] #: [id number] Patient: CHRISTAL DAWSON [id number] [facility] [address] [place] [address] [id number] I MR#: [id number] NAME: CHRISTAL DAWSON ROOM: P121 Age: 31 Sex: M Admission Date: 02/22/2017 : 1985 Attending Physician: Aurelio Bello M.D. Admitting Physician: Aurelio Bello M.D. Primary Care Physician: Duncan Virgen M.D. [facility] PROGRESS NOTES DATE 02/24/2017 DISCUSSION The patient has been transferred to the [address] [place] [address] unit as he has been on room lockout precautions, he has been attending groups, and I will discontinue the room lockout, he continues to deny suicidal or homicidal ideation, and exhibits no signs or symptoms of withdrawal yet the patient's mother did, in fact, state that he had made statements that he was hearing voices telling him to harm himself and her. The patient exhibits no stigmata of a psychotic illness and I very much doubt that the patient is hearing voices except when under the influence of methamphetamine. Whatever, the case we will watch the patient for one further day for completion of 72 hours of observation and expect a.m. discharge. It is interesting to note that after yesterday's claim that he was scheduled to appear in court related to his EPO the patient today claims that he wishes to return to [place] with his sister today. The patient's inconsistencies are somewhat breathtaking to behold. Dictated by... Aurelio Bello M.D. CARISSA/lizz TD: 02/24/2017 12:55 JOB #: [id number] [facility] PROGRESS NOTES Page 1 of 1 X Aurelio Bello MD X PROGRESS NOTE
--- NOTE | ~2017-02-22 | DS ---
Unit #: [id number] #: [id number] Patient: CHRISTAL DAWSON [id number] [place] [address] [id number] I MR#: [id number] NAME: CHRISTAL DAWSON ROOM: P121 Age: 31 Sex: M Admission Date: 02/22/2017 : 1985 Discharge Date: 02/25/2017 Attending Physician: Aurelio Bello M.D. Primary Care Physician: Duncan Virgen M.D. DISCHARGE SUMMARY REASON FOR ADMISSION The patient is a 31-year-old white male, admitted with ongoing abuse of heroin and methamphetamine. He had reportedly made homicidal and suicidal threats shortly prior to admission. HOSPITAL COURSE The patient was admitted initially to the [facility] unit, but transferred to the [address] [place] [address] [address] The patient was placed on room lockout precautions. The patient protested that he had not made suicidal or homicidal threats and repeatedly asked to leave the hospital on 02/23/2017. He demanded discharge from the hospital citing a need to attend a court date on 02/24/2017. He informed this physician that he planned to go to [facility] to live with his sister. On 02/25/2017, the patient had been observed for 72 hours and consistently denied suicidal or homicidal ideation, had in fact participated within the therapeutic milieu and denied any psychotic symptoms and exhibited no signs or symptoms of withdrawal. It was felt that further observation beyond 72 hours was not warranted and discharge was ordered. At the time of initial evaluation by this physician, the patient's mother did report that the threats he had made against her were "written and pinned on the wall," she also reported that he continues to abuse psychoactive substances outside the hospital and claims to be hearing voices; however, at no point that the patient claim auditory hallucinations during his stay in the hospital. FINAL DIAGNOSES Opioid use disorder, methamphetamine use disorder, antisocial personality disorder. DISPOSITION ON DISCHARGE The patient is discharged on the following medications: Vistaril 50 mg q.6 hours p.r.n. anxiety, Desyrel 50 mg at h.s. p.r.n. insomnia, Motrin 600 mg q.6 hours p.r.n. pain. DISCHARGE INSTRUCTIONS No dietary or physical restrictions were placed on the patient at the time of discharge. FOLLOWUP Followup will take place through the auspices of [facility] mental health resources. PROGNOSIS Unit #: [id number] #: [id number] Patient: CHRISTAL DAWSON The patient's prognosis remains guarded. Dictated by... Aurelio Bello M.D. CB/edelmira TD: 02/25/2017 13:45 JOB #: [id number] DISCHARGE SUMMARY Page 1 of 1 X Aurelio Bello MD X DISCHARGE SUMMARY
== END 2017-02-25 13:55 | disposition home or self-care (01) | DRG 897 ==
LOC: P1S 13:56 → P1E 13:56 → P1S 02-23 18:54
DX: F11.10 Opioid abuse, uncomplicated (principal); F15.10 Other stimulant abuse, uncomplicated; R44.0 Auditory hallucinations; F60.2 Antisocial personality disorder

== ENCOUNTER 2017-02-26 18:33 | Inpatient (IN) | payer OTHER ==
--- NOTE | ~2017-02-26 | PA ---
Unit #: [id number] #: [id number] Patient: CHRISTAL DAWSON [id number] [facility] [address] [place] [address] [id number] I MR#: [id number] NAME: CHRISTAL DAWSON ROOM: P254 Age: 31 Sex: M Admission Date: 02/26/2017 : 1985 Date of Assessment: 02/27/2017 Attending Physician: Aurelio Bello M.D. Admitting Physician: Aurelio Bello M.D. Primary Care Physician: Duncan Virgen M.D. PSYCHIATRIC ASSESSMENT IDENTIFYING INFORMATION The patient is a 31-year-old white male admitted to the [address] [place] [address] unit after he had presented to this facility claiming to be suicidal. INFORMANT(S) Patient. RELIABILITY Poor. CHIEF COMPLAINT "I had a panic attack." HISTORY OF PRESENT ILLNESS The patient is a 31-year-old white male well known to this physician from multiple previous admissions to this facility. He is admitted after having been discharged just 1 day prior to his readmission to the hospital. The patient reports that he was "freaking out" outside the hospital. He also claimed to be hearing voices and was voicing positive suicidal ideation. He stated that he had torn up his mother's house because of these "voices." The patient has a history of polysubstance dependence and antisocial personality disorder. When seen today, the patient informs this physician that he had claimed to be suicidal in order to gain admission to the hospital secondary to his "owing to his being in debt to his drug dealer." For a more complete history of present illness, please refer to previous dictated notes. PAST PSYCHIATRIC HISTORY Reviewed, no changes. FAMILY HISTORY/SOCIAL HISTORY Reviewed, no changes. MEDICAL HISTORY Reviewed, no changes. MEDICATION HISTORY 1. Vistaril. 2. Trazodone. 3. Motrin. 4. Gabapentin. 5. Depakote. 6. Risperdal. Unit #: [id number] #: [id number] Patient: CHRISTAL DAWSON ALLERGIES Penicillin, sulfa, amoxicillin, codeine, dextromethorphan, pseudoephedrine. MENTAL STATUS EXAM At this time, reveals the patient to be a well-developed, well-nourished white male appearing stated age. He is dressed in [facility] garb. He is awake, alert, oriented in all spheres. His mood is euthymic. His affect congruent. Speech is generally relevant and coherent. There are no gross deficits in memory or cognition noted. Intelligence is judged to be in the average range based on fund of knowledge. The patient is cooperative throughout the interview. He is currently denying suicidal/homicidal ideation or psychotic features. Judgement and insight appear to be reasonably intact. ASSETS AND LIABILITIES Patient's assets to be assessed. Liabilities, lack of resources. ADMITTING DIAGNOSES 1. Methamphetamine use disorder. 2. Opioid use disorder. 3. Alcohol use disorder. 4. Antisocial personality disorder. PSYCHIATRIC PLAN/TREATMENT GOALS The patient remains hospitalized for safety and stabilization. At this point, it remains the feeling of this physician that the patient's claims of auditory hallucinations are related to his ongoing substance use and Risperdal and Depakote will not be reinitiated. The patient's gabapentin will also be discontinued secondary to its potential for abuse. The patient will remain on room lockout precautions for a 72 hour period of time given his threats made at the time of admission much to his chagrin. ESTIMATED LENGTH OF STAY Three days. Dictated by... Aurelio Bello M.D. CARISSA/ozzie TD: 02/27/2017 18:52 JOB #: [id number] Unit #: [id number] #: [id number] Patient: CHRISTAL DAWSON PSYCHIATRIC ASSESSMENT Page 1 of 1 X Aurelio Bello MD X PSYCHIATRIC ASSESSMENT
--- NOTE | ~2017-02-26 | DS ---
Unit #: [id number] #: [id number] Patient: CHRISTAL DAWSON [id number] [facility] [address] [place] [address] [id number] I MR#: [id number] NAME: CRHISTAL DAWSON ROOM: 16 Age: 31 Sex: M Admission Date: 02/26/2017 : 1985 Discharge Date: 03/01/2017 Attending Physician: Aurelio Bello M.D. Primary Care Physician: Duncan Virgen M.D. DISCHARGE SUMMARY REASON FOR ADMISSION The patient is a 31-year-old white male who admitted to be suicidal and experiencing psychotic thinking. HOSPITAL COURSE The patient was admitted to the 2[facility] unit and placed on room lockout precautions. No medications were ordered apart from p.r.n. melatonin and routine p.r.n. as well as Nicotrol patch. The patient continued to push for discharge on 02/28/2017 according to disposition that he had made suicidal statements in order to gain some money." He pushed for discharge on that date observed for a full 72 hours. By 03/01/2017, the patient was exhibiting no signs or symptoms of withdrawal or psychosis and requested discharge and it was so ordered. FINAL DIAGNOSES Opioid use disorder; methamphetamine use disorder; antisocial personality disorder. DISPOSITION ON DISCHARGE No psychotropic or other medications were ordered at the time of discharge. FOLLOWUP Followup will take place through the auspices of community mental health resources. PROGNOSIS The patient's prognosis is considered poor. Dictated by... Aurelio Bello M.D. CB/edelmira TD: 03/01/2017 13:10 JOB #: [id number] Unit #: [id number] #: [id number] Patient: CHRISTAL DAWSON DISCHARGE SUMMARY Page 1 of 1 X Aurelio Bello MD X DISCHARGE SUMMARY
--- NOTE | ~2017-02-26 | PN ---
Unit #: [id number] #: [id number] Patient: CHRISTAL DAWSON [id number] [facility] [address] [place] [address] [id number] I MR#: [id number] NAME: CHRISTAL DAWSON ROOM: P254 Age: 31 Sex: M Admission Date: 02/26/2017 : 1985 Attending Physician: Aurelio Bello M.D. Admitting Physician: Aurelio Bello M.D. Primary Care Physician: Duncan Virgen M.D. [facility] PROGRESS NOTES DATE 02/28/2017 DISCUSSION The patient remains on room lockout precautions. He continues to deny suicidal ideation and remains intrusive, continuing to demand discharge from the hospital. I fully intend to watch the patient for full 72 hours given threats made at the time of admission. Dictated by... Aurelio Bello M.D. CARISSA/ozzie TD: 02/28/2017 12:09 JOB #: [id number] [facility] PROGRESS NOTES Page 1 of 1 X Aurelio Bello MD X PROGRESS NOTE
--- NOTE | ~2017-02-26 | HP ---
Unit #: [id number] #: [id number] Patient: SANJIV DAWSON [id number] [facility] [address] [place] [address] [id number] I MR#: [id number] NAME: SANJIV DAWSON ROOM: P254 Age: 31 Sex: M Admission Date: 02/26/2017 : 1985 Attending Physician: Aurelio Bello M.D. Admitting Physician: Aurelio Bello M.D. Primary Care Physician: Duncan Virgen M.D. HISTORY AND PHYSICAL Sanjiv is a 31 year old admitted to 2 [facility] with increased anxiety. He was just discharged from this facility and then readmitted. Patient was seen and H and P dated 02/22/17 was reviewed. This is current. No changes. Please see H and P dated 02/22/17. Dictated by... Adilia Garcia P.A.-C. for Enrrique Elliott/ozzie TD: 02/28/2017 14:36 JOB #: [id number] HISTORY AND PHYSICAL Page 1 of 1 X Adilia Garcia HISTORY AND PHYSICAL
[2017-03-01 12:25] LABS: AMPHETAMINE POS (NEG); BARBITURATES NEG (NEG); BENZODIAZEPINES NEG (NEG); COCAINE NEG (NEG); MARIJUANA NEG (NEG); OPIATES NEG (NEG); TRICYCLIC ANTIDEPRESSANTS NEG (NEG); U METHADONE NEG (NEG)
== END 2017-03-01 13:27 | disposition home or self-care (01) | DRG 897 ==
LOC: P2L 20:57 → P1S 02-28 16:08
PROVIDERS: Specialist
DX: F15.10 Other stimulant abuse, uncomplicated (principal); F11.10 Opioid abuse, uncomplicated; F10.10 Alcohol abuse, uncomplicated; Z88.0 Allergy status to penicillin; Z88.1 Allergy status to other antibiotic agents; Z88.2 Allergy status to sulfonamides; F60.2 Antisocial personality disorder
CPT/HCPCS: 80307

== ENCOUNTER 2017-04-14 18:34 | Inpatient (IN) | payer OTHER ==
[~2017-04-14] VITALS: Ht 177.8 cm; Wt 86.2 kg
--- NOTE | ~2017-04-14 | DS ---
Unit #: [id number] #: [id number] Patient: CHRISTAL DAWSON [id number] [facility] [address] [place] [address] [id number] I MR#: [id number] NAME: CHRISTAL DAWSON ROOM: P173 Age: 31 Sex: M Admission Date: 04/14/2017 : 1985 Discharge Date: 04/16/2017 Attending Physician: Aurelio Bello M.D. Primary Care Physician: Duncan Virgen M.D. DISCHARGE SUMMARY REASON FOR ADMISSION The patient is a 31-year-old single white male admitted to the [facility] Unit with recurrent abuse of alcohol and heroin. HOSPITAL COURSE The patient was admitted to the [facility] Unit and placed on routine detoxification protocol. No medications were ordered apart from those involved in the patient's detoxification protocol. His stay in the hospital was brief and uneventful one. He requested discharged on 04/16/2017 stating that he had made arrangements for housing, and discharge was ordered. FINAL DIAGNOSES 1. Alcohol use disorder. 2. Opioid use disorder. 3. Antisocial personality disorder. 4. Hepatitis C. DISPOSITION ON DISCHARGE The patient was discharged on no psychotropic or other medications. Follow up will take place through the auspices of community mental health and chemical dependence treatment resources. PROGNOSIS Remains guarded. Dictated by... Aurelio Bello M.D. CARISSA/desirae TD: 04/17/2017 06:46 JOB #: [id number] Unit #: [id number] #: [id number] Patient: CHRISTAL DAWSON DISCHARGE SUMMARY Page 1 of 1 X Aurelio Bello MD X DISCHARGE SUMMARY
--- NOTE | ~2017-04-14 | HP ---
Unit #: [id number] #: [id number] Patient: SANJIV DAWSON [id number] [place] [address] [id number] I MR#: [id number] NAME: SANJIV DAWSON ROOM: P173 Age: 31 Sex: M Admission Date: 04/14/2017 : 1985 Attending Physician: Aurelio Bello M.D. Admitting Physician: Aurelio Bello M.D. Primary Care Physician: Duncan Virgen M.D. HISTORY AND PHYSICAL HISTORY OF PRESENT ILLNESS Sanjiv is a 31 year old admitted to [facility] because of his continued drug use. He has had other admissions to this facility for the same. PAST MEDICAL HISTORY 1. Long history of illicit substance abuse to include IV heroin, methamphetamine. 2. History of alcohol abuse. 3. Seizure disorder. 4. History of CHI. PAST SURGICAL HISTORY 1. Fractured left femur with ORIF. 2. Surgical I & D multiple abscesses, IV drug related. ALLERGIES Penicillin, sulfa, codeine, pseudoephedrine, dextromethorphan. SOCIAL HISTORY He smokes at least a pack and a half a day. He drinks a fifth of liquor frequently and admits to a long history of illicit substance abuse to include IV drugs. FAMILY HISTORY Medically noncontributory. REVIEW OF SYSTEMS CONSTITUTIONAL: No fever or chills. HEENT: Denies any sore throat, ear pain or runny nose. CARDIOVASCULAR: Denies chest pain, irregular heart rhythm or palpitations. CHEST: Denies shortness of breath or cough. No hemoptysis. GASTROINTESTINAL: Denies nausea, vomiting, diarrhea or chronic constipation. ENDOCRINE: Denies history of increased thirst or urination. No recent significant weight loss or gain. GENITOURINARY: Denies dysuria, frequency, or hematuria. SKIN: Denies any rashes. HEMATOLOGIC: Denies history of increased bleeding or bruising. MUSCULOSKELETAL: Denies any hot, swollen joints. No generalized muscle pain. NEUROLOGIC: Denies problems with vision or speech. No frequent, severe headaches. No numbness, tingling or weakness in any extremities. Denies Unit #: [id number] #: [id number] Patient: SANJIV DAWSON loss of bladder or bowel control. CURRENT MEDICATIONS Detox protocol. PHYSICAL EXAMINATION GENERAL: Alert, well-nourished, in no apparent distress. VITAL SIGNS: Blood pressure 100/50, heart rate 80, respirations 16, temperature 98.6. WEIGHT: 190. HEIGHT: 5 foot 10 inches. SKIN: Warm and dry without rash or lesion. HEENT: Normocephalic. TMs not viewed. Oral and nasal passages clear. Conjunctivae clear. Pupils equal, round and reactive to light and accommodation. Extraocular movements intact. NECK: Supple without lymphadenopathy or thyromegaly. HEART: Regular rate and rhythm without murmur. LUNGS: Clear. ABDOMEN: Soft, nontender. : Not done. EXTREMITIES: No evidence of cyanosis, clubbing or edema. Moves all extremities without focal deficit. NEUROLOGICAL: Grossly within normal limits. Cranial Nerves: II: Visual luna are intact. III, IV AND : Extraocular movements are intact. Pupils are equal, round and reactive to light. V: Facial sensation is grossly normal. VII: Facial movements and expression are normal. VIII: Auditory acuity grossly intact. IX, X: Uvula is midline. Phonation is normal. XI: Patient shrugs shoulders and turns head normally. XII: Tongue protrudes in the midline. Sensory and Motor Function: Sensory and motor sensation is grossly normal. Motor: moves all extremities well. Coordination: Gait is normal. Deep Tendon Reflexes: Intact. IMPRESSION Psychiatric admission. RECOMMENDATIONS PSYCHIATRIC: Per psychiatrist. MEDICAL: I see no contraindications to participating in facility's activities. MEDICAL PROGNOSIS Good. MEDICAL CONDITION Stable. Dictated by... Adilia Garcia P.A.-C. for Enrrique Elliott/danica Unit #: [id number] #: [id number] Patient: SANJIV DAWSON TD: 04/15/2017 22:03 JOB #: [id number] HISTORY AND PHYSICAL Page 1 of 1 X Adilia Garcia HISTORY AND PHYSICAL
--- NOTE | ~2017-04-14 | PA ---
Unit #: [id number] #: [id number] Patient: CHRISTAL DAWSON [id number] [place] [address] [id number] I MR#: [id number] NAME: CHRISTAL DAWSON ROOM: P173 Age: 31 Sex: M Admission Date: 04/14/2017 : 1985 Date of Assessment: 04/15/2017 Attending Physician: Aurelio Bello M.D. Admitting Physician: Aurelio Bello M.D. Primary Care Physician: Duncan Virgen M.D. PSYCHIATRIC ASSESSMENT IDENTIFYING INFORMATION The patient is a 31-year-old white male admitted reporting positive suicidal ideation and alcohol use. CHIEF COMPLAINT None given. INFORMANT(S) Patient, reliability is poor. HISTORY OF PRESENT ILLNESS The patient is a 31-year-old white male well known to this physician from severe previous admissions to this facility. He is admitted after he presented to this facility voicing positive suicidal ideation with plan to jump from a bridge. The patient reports that he has been drinking a fifth daily of vodka and has also been abusing heroin. He claims a history of schizoaffective disorder and states that he has been prescribed Risperdal, Depakote, and Neurontin in the past. When seen today, the patient is abed and sleeping soundly and cannot be aroused for further interview. For more complete history of present illness, please refer to previously dictated notes. PAST PSYCHIATRIC HISTORY Reviewed, no changes. PAST MEDICAL HISTORY Reviewed, no changes. MEDICATIONS Depakote, Neurontin, and Risperdal. ALLERGIES None reported. FAMILY HISTORY Reviewed, no changes. SOCIAL HISTORY Reviewed, no changes. MENTAL STATUS EXAMINATION Examination at this time reveals the patient to be a soundly sleeping white male. Multiple attempts to arouse the patient are unsuccessful. Unit #: [id number] #: [id number] Patient: CHRISTAL DAWSON ASSETS AND LIABILITIES The patient's assets are to be assessed. Liabilities: Lack of resources. DIAGNOSTIC IMPRESSION 1. Alcohol use disorder. 2. Opioid use disorder. 3. Schizoaffective disorder per patient's history. TREATMENT PLAN The patient remains hospitalized for safety and stabilization. Routine detoxification protocol for opioids and alcohol has been initiated. The patient will participate in appropriate order of milieu activities, and suicide precautions remain in place. ESTIMATED LENGTH OF STAY 3 to 5 days. Dictated by... Aurelio Bello M.D. Rosa TD: 04/15/2017 14:38 JOB #: [id number] PSYCHIATRIC ASSESSMENT Page 1 of 1 X Aurelio Bello MD X PSYCHIATRIC ASSESSMENT
[2017-04-15 09:43] LABS: BASOPHIL% 0.6 % (0-2.5); EOSINOPHIL# 0.4 X10e3 (0-0.7); EOSINOPHIL% 4.8 % (0.0-7.0); HEMATOCRIT 38.6 % (38.0-50.0); HEMOGLOBIN 13.2 gm/dL (13.0-16.0); LYMPHOCYTE# 3.5 X10e3 (1.0-3.5); LYMPHOCYTE% 47.7 % (17.0-45.0); MEAN CELL VOLUME 92.9 FL (83-96); MEAN CORPUSCULAR HEMOGLOBIN 31.8 PG (28-34); MEAN CORPUSCULAR HGB CONC 34.2 g/dL (30-36); MEAN PLATELET VOLUME 8.9 FL (6.5-11.5); MONOCYTE# 0.9 X10e3 (0-1.0); MONOCYTE% 12.1 % (3.0-12.0); NEUTROPHIL# 2.6 X10e3 (1.5-7.1); NEUTROPHIL% 34.8 % (40-75); PLATELET COUNT 178 X10e3 (140-420); RED BLOOD COUNT 4.16 X10e (3.90-5.60); RED CELL DISTRIBUTION WIDTH 14.7 % (11.0-15.5); WHITE BLOOD COUNT 7.3 X10e3 (4.0-10.5)
[2017-04-15 09:45] LABS: DIFF IND NO
[2017-04-15 10:09] LABS: ALBUMIN SERUM 3.3 g/dL (3.5-5.0); BILIRUBIN,TOTAL 0.6 mg/dL (0.2-2.0); BUN/CREATININE RATIO 16.66; CALCIUM SERUM 8.4 mg/dL (8.4-10.2); CREATININE SERUM 0.6 mg/dL (0.6-1.4); POTASSIUM 4.3 mmol/L (3.5-5.1); PROTEIN TOTAL SERUM 6.5 g/dL (6.0-8.3)
== END 2017-04-16 14:00 | DRG 897 ==
LOC: P1E 20:12
PROVIDERS: Specialist
PROC: HZ2ZZZZ Detoxification Services for Substance Abuse Treatment (ICD-10-PCS; principal; 2017-04-14)
DX: F10.20 Alcohol dependence, uncomplicated (principal); F11.20 Opioid dependence, uncomplicated; R45.851 Suicidal ideations; F25.9 Schizoaffective disorder, unspecified; Z88.0 Allergy status to penicillin; Z88.2 Allergy status to sulfonamides; Z88.5 Allergy status to narcotic agent; Z88.8 Allergy status to other drugs, medicaments and biological substances; F17.210 Nicotine dependence, cigarettes, uncomplicated; F60.2 Antisocial personality disorder; B19.20 Unspecified viral hepatitis C without hepatic coma
CPT/HCPCS: 80053; 85025

== ENCOUNTER 2017-05-03 18:00 | Inpatient (IN) | payer OTHER ==
[~2017-05-03] VITALS: Ht 180.3 cm; Wt 84.8 kg
--- NOTE | ~2017-05-03 | HP ---
Unit #: [id number] #: [id number] Patient: SANJIV DAWSON [id number] [facility] [address] [place] [address] [id number] I MR#: [id number] NAME: SANJIV DAWSON ROOM: P201 Age: 32 Sex: M Admission Date: 05/03/2017 : 1985 Attending Physician: Aurelio Bello M.D. Admitting Physician: Aurelio Bello M.D. Primary Care Physician: Duncan Virgen M.D. HISTORY AND PHYSICAL HISTORY OF PRESENT ILLNESS Sanjiv is a 32 year old admitted to [address] [place] [address] because of his continued drug use. He has had numerous admissions to this facility. PAST MEDICAL HISTORY 1. Long history of illicit substance abuse to include IV heroin and methamphetamine. 2. History of endocarditis. 3. History of alcohol abuse. 4. Seizure disorder. 5. History of CHI. PAST SURGICAL HISTORY 1. Fractured left femur with ORIF. 2. Surgical I&D, multiple abscesses, IV drug related. ALLERGIES Penicillin, sulfa, codeine, pseudoephedrine, dextromethorphan. SOCIAL HISTORY Smokes at least one pack per day. Drinks alcohol frequently. Has a long history of illicit substance abuse to include IV drugs. FAMILY HISTORY Medically noncontributory. REVIEW OF SYSTEMS CONSTITUTIONAL: No fever or chills. HEENT: Denies any sore throat, ear pain or runny nose. CARDIOVASCULAR: Denies chest pain, irregular heart rhythm or palpitations. CHEST: Denies shortness of breath or cough. No hemoptysis. GASTROINTESTINAL: Denies nausea, vomiting, diarrhea or chronic constipation. ENDOCRINE: Denies history of increased thirst or urination. No recent significant weight loss or gain. GENITOURINARY: Denies dysuria, frequency, or hematuria. SKIN: Denies any rashes. HEMATOLOGIC: Denies history of increased bleeding or bruising. MUSCULOSKELETAL: Denies any hot, swollen joints. No generalized muscle pain. NEUROLOGIC: Denies problems with vision or speech. No frequent, severe headaches. No numbness, tingling or weakness in any extremities. Denies Unit #: [id number] #: [id number] Patient: SANJIV DAWSON loss of bladder or bowel control. CURRENT MEDICATIONS Detox protocol PHYSICAL EXAMINATION GENERAL: Alert, well-nourished, in no apparent distress. VITAL SIGNS: Blood pressure 100/50, heart rate 58, respirations 16, temperature 98.6. WEIGHT: 187. HEIGHT: 5 foot 11 inches. SKIN: Warm and dry without rash or lesion. HEENT: Normocephalic. TMs not viewed. Oral and nasal passages clear. Conjunctivae clear. Pupils equal, round and reactive to light and accommodation. Extraocular movements intact. NECK: Supple without lymphadenopathy or thyromegaly. HEART: Regular rate and rhythm without murmur. LUNGS: Clear. ABDOMEN: Soft, nontender. : Not done. EXTREMITIES: No evidence of cyanosis, clubbing or edema. Moves all extremities without focal deficit. NEUROLOGICAL: Grossly within normal limits. Cranial Nerves: II: Visual luna are intact. III, IV AND : Extraocular movements are intact. Pupils are equal, round and reactive to light. V: Facial sensation is grossly normal. VII: Facial movements and expression are normal. VIII: Auditory acuity grossly intact. IX, X: Uvula is midline. Phonation is normal. XI: Patient shrugs shoulders and turns head normally. XII: Tongue protrudes in the midline. Sensory and Motor Function: Sensory and motor sensation is grossly normal. Motor: moves all extremities well. Coordination: Gait is normal. Deep Tendon Reflexes: Intact. IMPRESSION Psychiatric admission. RECOMMENDATIONS PSYCHIATRIC: Per psychiatrist. MEDICAL: I see no contraindications to participating in facility's activities. MEDICAL PROGNOSIS Good. MEDICAL CONDITION Stable. Dictated by... José KimAZahraa-Kanika. for Enrrique Elliott/danica Unit #: [id number] #: [id number] Patient: SANJIV DAWSON TD: 05/05/2017 00:11 JOB #: [id number] HISTORY AND PHYSICAL Page 1 of 1 X Adilia Garcia HISTORY AND PHYSICAL
--- NOTE | ~2017-05-03 | DS ---
Unit #: [id number] #: [id number] Patient: CHRISTAL DAWSON [id number] [facility] [address] [place] [address] [id number] I MR#: [id number] NAME: CHRISTAL DAWSON ROOM: P201 Age: 32 Sex: M Admission Date: 05/03/2017 : 1985 Discharge Date: 05/06/2017 Attending Physician: Aurelio Bello M.D. Primary Care Physician: Duncan Virgen M.D. DISCHARGE SUMMARY REASON FOR ADMISSION The patient is a 32-year-old white male with a history of opioid and alcohol abuse. He was admitted after he had presented to this facility accompanied by his mother, who stated that the patient had been making suicidal threats. HOSPITAL COURSE The patient was admitted to the -[facility] unit for 72-hour hold given the patient's mother's concerns of his potential for suicide. The patient's 3-day stay in the hospital was characterized by very poor participation within the therapeutic milieu, but consistent denial of suicidal ideation. With completion of 3 days of observation, it was not felt that the patient met criteria for further involuntary hospitalization and discharge was ordered. FINAL DIAGNOSES Dysthymic disorder, alcohol use disorder, opioid use disorder, hepatitis C, and antisocial personality disorder. DISPOSITION ON DISCHARGE The patient is discharged on no psychotropic or other medications. FOLLOWUP Followup will take place through the auspices of community mental health resources. PROGNOSIS The patient's prognosis remains guarded. Dictated by... Aurelio Bello M.D. CB/maximol TD: 05/06/2017 19:28 JOB #: [id number] Unit #: [id number] #: [id number] Patient: CHRISTAL DAWSON DISCHARGE SUMMARY Page 1 of 1 X Aurelio Bello MD X DISCHARGE SUMMARY
--- NOTE | ~2017-05-03 | PA ---
Unit #: [id number] #: [id number] Patient: CHRISTAL DAWSON [id number] [place] [address] [id number] MR#: [id number] NAME: CHRISTAL DAWSON ROOM: P201 Age: 32 Sex: M Admission Date: 05/03/2017 : 1985 Date of Assessment: 05/04/2017 Attending Physician: Aurelio Bello M.D. Admitting Physician: Aurelio Bello M.D. Primary Care Physician: Duncan Virgen M.D. PSYCHIATRIC ASSESSMENT IDENTIFYING INFORMATION The patient is a 32-year-old white male admitted after he presented to this facility yesterday accompanied by his mother complaining of suicidal ideation. CHIEF COMPLAINT None given. INFORMANT(S) Patient and chart. RELIABILITY Fair. HISTORY OF PRESENT ILLNESS The patient is a 32-year-old white male well known to this physician from severe previous admissions to this facility. He is admitted after he was brought to this facility accompanied by his mother yesterday. The patient had during evaluation denied suicidal ideation. However, the patient's mother had expressed grave concerns over the patient's safety over the patient's safety stating that he had attempted to hang himself earlier in the week and had attempted to overdose on heroin. The patient today denies any such thinking. He claims to have been compliant with described trazodone and Depakote during his brief period of time outside of the hospital. He is denying current suicidal ideation but as noted previously his mother has made statements related to grave concerns over her son's safety. For more complete history of present illness please refer to previous dictated notes. PAST PSYCHIATRIC HISTORY Reviewed, no changes. PAST MEDICAL HISTORY Reviewed, no changes. MEDICATIONS 1. Seroquel 2. Depakote ALLERGIES Penicillin, sulfa, amoxicillin, brompheniramine, ceftriaxone, codeine, dextromethorphan, pseudoephedrine. FAMILY HISTORY Unit #: [id number] #: [id number] Patient: CHRISTAL DAWSON Reviewed, no changes. SOCIAL HISTORY Reviewed, no changes. MENTAL STATUS EXAMINATION Examination at this time reveals the patient to be a well-developed, well-nourished white male appearing his stated age. He has no apparent physical distress at the time of examination. He is awake, alert, and oriented in all spheres. His mood is euthymic. His affect is full range. Speech is generally relevant and coherent. There are no gross deficits in memory or cognition noted. Intelligence is judged to be in the low average range based on fund of knowledge. The patient is generally cooperative during interview. He is currently denying suicidal or homicidal ideation or psychotic features. Judgment and insight appear to be reasonably intact. ASSETS AND LIABILITIES The patient's assets are to be assessed. Liabilities: Lack of resources. DIAGNOSTIC IMPRESSION 1. Opioid use disorder. 2. Dysthymic disorder. 3. Antisocial personality disorder. 4. Hepatitis C. TREATMENT PLAN The patient remains hospitalized for safety and stabilization. He has only been out of [facility] for a day or so so no detox protocol will be necessary. He remains on suicidal precautions given concerns voiced by his mother and we will observe the patient for at least 72 hours given these concerns though the patient is currently denying any suicidal thinking. MENTAL STATUS EXAMINATION At this time reveals the patient to be a well-developed, well-nourished white male, appearing his stated age. He is in no apparent physical distress at the time of examination. He is awake, alert, and oriented in all spheres. His mood is euthymic. His affect is full range. Speech is generally relevant and coherent. There are no gross deficits in memory or cognition noted. Intelligence is judged to be in the average range based on fund of knowledge. The patient is cooperative throughout the interview. He is currently denying suicidal or homicidal ideation or psychotic features. Judgment and insight appear to be intact. ESTIMATE LENGTH OF STAY IN THE HOSPITAL Three days. Dictated by... Aurelio Bello M.D. CARISSA/danica TD: 05/04/2017 21:40 JOB #: [id number] Unit #: [id number] #: [id number] Patient: CHRISTAL DAWSON PSYCHIATRIC ASSESSMENT Page 1 of 1 X Aurelio Bello MD PSYCHIATRIC ASSESSMENT
--- NOTE | ~2017-05-03 | PN ---
Unit #: [id number] #: [id number] Patient: CHRISTAL DAWSON [id number] [facility] [address] [place] [address] [id number] I MR#: [id number] NAME: CHRISTAL DAWSON ROOM: P201 Age: 32 Sex: M Admission Date: 05/03/2017 : 1985 Attending Physician: Aurelio Bello M.D. Admitting Physician: Aurelio Bello M.D. Primary Care Physician: Duncan Virgen M.D. [facility] PROGRESS NOTES DATE 05/05/2017 DISCUSSION The patient pushes for discharge today stating that he has been accepted to go to "[facility]." I suspect that this story is less than truthful one given the patient's prior history and will plan to watch the patient for the completion of his 72 hour hold which will end tomorrow. He continues to vehemently deny suicidal ideation. Dictated by... Aurelio Bello M.D. CB/ozzie TD: 05/05/2017 17:29 JOB #: [id number] [facility] PROGRESS NOTES Page 1 of 1 X Aurelio Bello MD X PROGRESS NOTE
[2017-05-04 10:05] LABS: URINE APPEARANCE CLEAR; URINE BILIRUBIN NEG (NEG); URINE BLOOD NEG (NEG); URINE COLOR YELLOW; URINE GLUCOSE NEG (NEG); URINE KETONE NEG (NEG); URINE LEUKOCYTE ESTERASE NEG (NEG); URINE NITRATE NEG (NEG); URINE PROTEIN NEG (NEG); URINE UROBILINOGEN 0.2 MG/DL (NEG)
[2017-05-04 10:18] LABS: AMPHETAMINE NEG (NEG); BARBITURATES POS (NEG); BENZODIAZEPINES NEG (NEG); COCAINE NEG (NEG); MARIJUANA NEG (NEG); OPIATES POS (NEG); TRICYCLIC ANTIDEPRESSANTS NEG (NEG); U METHADONE NEG (NEG)
== END 2017-05-06 17:27 | disposition home or self-care (01) | DRG 897 ==
LOC: P2S 19:46
PROVIDERS: Specialist
DX: F10.10 Alcohol abuse, uncomplicated (principal); F11.10 Opioid abuse, uncomplicated; B19.20 Unspecified viral hepatitis C without hepatic coma; F34.1 Dysthymic disorder; F60.2 Antisocial personality disorder; Z88.0 Allergy status to penicillin; Z88.2 Allergy status to sulfonamides
CPT/HCPCS: 80307; 81003